=== PATIENT | male | born 1980 | race Caucasian/White ===

== ENCOUNTER 2016-10-20 11:38 | Emergency (ER) | payer SELFPAY | END 2016-10-20 14:52 | disposition home or self-care (01) | LOC: D.ER 11:38 | DX: K04.7 Periapical abscess without sinus (principal); K08.89 Other specified disorders of teeth and supporting structures; F17.200 Nicotine dependence, unspecified, uncomplicated ==

== ENCOUNTER 2017-06-15 13:44 | Emergency (ER) | payer SELFPAY | END 2017-06-15 15:32 | disposition home or self-care (01) | LOC: D.ER 13:44 | DX: S69.92XA Unspecified injury of left wrist, hand and finger(s), initial encounter (principal); W11.XXXA Fall on and from ladder, initial encounter; Y93.89 Activity, other specified; Y92.029 Unspecified place in mobile home as the place of occurrence of the external cause; M25.532 Pain in left wrist; F17.200 Nicotine dependence, unspecified, uncomplicated ==

== ENCOUNTER 2017-10-25 16:31 | Emergency (ER) | payer MEDICAID ==
[2017-10-25 23:35] LABS: ERYTHROCYTE SEDIMENTATION RATE 1 mm/hr (0-15)
[2017-10-29 10:12] LABS: ANA REFLEX - DIRECT Negative (Negative)
== END 2017-10-25 22:35 | disposition home or self-care (01) ==
LOC: D.ER 16:31
PROVIDERS: Physician Assistant
DX: S59.901A Unspecified injury of right elbow, initial encounter (principal); V89.9XXA Person injured in unspecified vehicle accident, initial encounter; Y93.89 Activity, other specified; Y92.89 Other specified places as the place of occurrence of the external cause; M25.521 Pain in right elbow; F17.200 Nicotine dependence, unspecified, uncomplicated